=== PATIENT | female | born 1965 | race Caucasian/White ===

== ENCOUNTER 2023-06-11 06:37 | Day surgery (SDC) | payer OTHER, SELFPAY ==
[2023-06-07 13:07] VITALS: BMI 29.1
--- NOTE | 2023-06-08 07:29 | MHC.SHP ---
Pre-Procedural Eval Section A Date of Service: 06/08/23 The patient is an INPATIENT: No Changes since office visit: No Cold of Flu in the past 2 weeks, No New Medical Problems, No Changes in Medication and No Patient answered all questions The History & Physical has been completed within 30 days and I have reviewed it.: Yes Section B Chief Complaint: Age-related nuclear cataract, left eye Allergies: Allergies Allergy/AdvReac Type Severity Reaction Status Date / Time adhesive tape Allergy Unknown Verified 06/07/23 13:06 Plan Diagnosis/Plan: Unchanged I have reviewed the history and physical and performed a pertinent physical examination on my patient. No changes have occurred unless specified. Time Spent With Patient Time: Total time managing care of this patient today ____ minutes.
--- NOTE | 2023-06-08 10:44 | HO.ANESPROP2 ---
Documented by User: Le Maher NP 06/08/23 10:45 HPI - Anesthesia Eval Consult details Narrative: 58yo F for Left Cataract Extraction IOL Insertion PCP cleared No previous cataract on record [facility] Past Medical History Medical History (Updated 06/07/23 @ 13:06 by Margaret Stacy RN) Cataract Hyperlipidemia Migraine Left bundle branch block (LBBB) Allergic rhinitis Surgical History Surgical History (Updated 06/07/23 @ 13:06 by Margaret Stacy RN) Hx of cholecystectomy History of History of esophagogastroduodenoscopy (EGD) Hx of colonoscopy Social History Social History Patient Tobacco Use Status: Never used Tobacco Use of substances other than those prescribed or required for medical reasons: No Are you DNR?: No Advance Directives: No Advance Directives Information Provided: Yes Meds Allergies Allergy/AdvReac Type Severity Reaction Status Date / Time adhesive tape Allergy Unknown Verified 06/07/23 13:06 Active Medications: Current Medications Povidone Iodine (Povidone Iodine 5 % Ophth Soln 30 Ml Bottle) 1 appl EYE-LEFT PREOP PRN PRN Reason: Pre-Op Surgical Implant Prophy Home Medications Medication Instructions Recorded Confirmed Last Taken Type magnesium oxide 400 mg (241.3 mg 400 mg PO DAILY 06/07/23 06/07/23 Unknown History magnesium) tablet metoprolol succinate 25 mg 25 mg PO BEDTIME 06/07/23 06/07/23 Unknown History tablet,extended release 24 hr nortriptyline 10 mg capsule 10 mg PO BID 06/07/23 06/07/23 Unknown History Exam Exam Date and Time: June 08, 2023 1044 Height,Weight and Vital Signs: Height 5 ft 4.96 in Weight 79.3 kg Assessment and Plan Assessment Anesthesia Assessment: Chart Reviewed Documented by User: Yousif Walls MD 06/11/23 07:12 [facility] Past Medical History Medical History (Updated 06/07/23 @ 13:06 by Margaret Stacy RN) Cataract Hyperlipidemia Migraine Left bundle branch block (LBBB) Allergic rhinitis Family History Family history of problems with anesthesia: No Surgical History Surgical History (Updated 06/07/23 @ 13:06 by Margaret Stacy RN) Hx of cholecystectomy History of History of esophagogastroduodenoscopy (EGD) Hx of colonoscopy History of Problems with Anesthesia: No Social History Social History Patient Tobacco Use Status: Never used Tobacco Use of substances other than those prescribed or required for medical reasons: No Are you DNR?: No Advance Directives: No Advance Directives Information Provided: Yes Meds Allergies Allergy/AdvReac Type Severity Reaction Status Date / Time adhesive tape Allergy Unknown Verified 06/07/23 13:06 Home Medications Medication Instructions Recorded Confirmed Last Taken Type magnesium oxide 400 mg (241.3 mg 400 mg PO DAILY 06/07/23 06/07/23 Unknown History magnesium) tablet metoprolol succinate 25 mg 25 mg PO BEDTIME 06/07/23 06/07/23 Unknown History tablet,extended release 24 hr nortriptyline 10 mg capsule 10 mg PO BID 06/07/23 06/07/23 Unknown History Exam Airway Mallampati Class: II TM Dist: >3cm Neck ROM: Full Loose/Missing/Broken Teeth: No Heart: [id number] Lungs: cta b/l Assessment and Plan Assessment Anesthesia Assessment: Anesthesia Plan Discussed Final Anesthetic Review Family History of Problems with Anesthesia: No History of Problems with Anesthesia: No NPO: Yes ASA Class: II Final Preanesthetic Review: No Changes in Pt Med Stat, Meds/Allgs Chart Reviewed, Consent Obtained/Reviewed and Anes Risks/Benef Reviewed Patient Risk: Low Procedure Risk: Low Assessment/Block/Sedation in SS: Assess/Block/Sedation-SS Anesthetic Plan Anesthetic Plan: MAC: and Agree w/ Assess. and Plan Disposition: Standard PACU
[2023-06-11 06:56] VITALS: BP 130/96; PULSE 101; RESP 16; TEMP 36.9; O2SAT 95
[2023-06-11] MEDS: Tetracaine HCl/PF 0.5% Oph Sol 4 ML DROPS 1 DROP EYE-LEFT (07:06)
[2023-06-11] MEDS: Lactated Ringers 500 ML 50 ML IV (07:06)
[2023-06-11] MEDS: Tropicamide 1 % Ophth Sol 3 ML BTL 1 DROP EYE-LEFT ×3 (07:07→07:13)
[2023-06-11] MEDS: Cyclopentolate 1 % Ophth Sol 2 ML DRPBTL 1 DROP EYE-LEFT ×3 (07:07→07:12)
[2023-06-11] MEDS: Phenylephrine HCL 2.5% Oph SoL 2 ML BOTTLE 1 DROP EYE-LEFT ×3 (07:08→07:14)
[2023-06-11] MEDS: Ketorolac Tromethamine 0.5% Op 5 ML DROPS 1 DROP EYE-LEFT ×3 (07:08→07:13)
--- NOTE | 2023-06-11 07:57 | HO.PNOPHT ---
Ophthalmology Procedure Procedure Date of Service: 06/11/23 Ophthalmology Viscoelastic: Healcristiane Schustert Dual Pack Pro Ophthalmology Lenses: TECLULA [id number] (22) Procedure Notes: PREOPERATIVE DIAGNOSIS: Decreased visual acuity left eye secondary to cataract POSTOPERATIVE DIAGNOSIS: Same PROCEDURE: Left cataract extraction with intraocular lens insertion SURGEON: Cedrick Ennis M.D. ANESTHESIA: Topical/MAC ESTIMATED BLOOD LOSS: None COMPLICATIONS: None After obtaining informed consent, the patient was brought to the operation room suite and placed in the supine position. After adequate sedation per anesthesia, topical drops of Tetracaine were given to the left eye. The eye was then prepped and draped in the usual sterile fashion. The operating room microscope was then positioned over the operative eye and a lid speculum placed. A paracentesis was created. Viscoelastic was then instilled into the anterior chamber. A three plane incision was then created temporally, utilizing a 2.85 mm keratome. Capsulotomy forceps were then utilized to create a circular tear capsulotomy. Hydrodissection and hydrodelineation were carried out until adequate mobilization of the nucleus occurred. Phacoemulsification was then utilized to remove the dense central nucleus followed by removal of the cortical material utilizing the automated aspiration irrigation unit. Viscoat elastic was instilled into the posterior capsular bag followed by placement of a posterior chamber intraocular lens without difficulty. The residual Viscoat elastic was then removed utilizing the automated IA machine. The wound was check and found to be watertight. The patient tolerated the procedure well and the lid speculum was removed. Intracameral injection of Vigamox 0.1 mL followed by a subtenon injection of Kenalog-40 0.2 mL were administered. The patient will be seen in the a.m.
[2023-06-11 08:19] VITALS: BP 129/78; PULSE 92; RESP 16; TEMP 36.2; O2SAT 99
== END 2023-06-11 08:28 | disposition home or self-care (01) ==
PROVIDERS: PCP Physician Assistant; Visit Provider Ophthalmology
PROC: (CPT 66985; principal; 2023-06-11 08:00)
DX: H25.12 Age-related nuclear cataract, left eye (principal); H54.7 Unspecified visual loss; H43.399 Other vitreous opacities, unspecified eye; E78.5 Hyperlipidemia, unspecified; I44.7 Left bundle-branch block, unspecified; I49.3 Ventricular premature depolarization; E66.9 Obesity, unspecified; G43.909 Migraine, unspecified, not intractable, without status migrainosus; J30.9 Allergic rhinitis, unspecified; Z79.899 Other long term (current) drug therapy; L23.1 Allergic contact dermatitis due to adhesives
CPT/HCPCS: 66984; J2250; J3301; V2632